=== PATIENT | male | born 1945 | race American Indian/Alaskan Native ===

== ENCOUNTER 2017-09-20 17:01 | Emergency (ER) | payer MEDICARE ==
[2017-09-20 17:31] VITALS: BP 125/68
--- NOTE | 2017-09-20 18:05 | Emergency Department Report ---
ED GI Bleed HPI - General Chief complaint: GI Bleed Stated complaint: BLOOD IN STOOL Time Seen by Provider: 09/20/17 17:55 Source: patient Mode of arrival: Ambulatory Limitations: No Limitations - History of Present Illness Initial comments: Patient is a 72-year-old -[place] male whose presenting with blood in his stool. Patient's states is was a bit looser today and he's noticed quite a bit of blood. Patient is black bright red blood is filled and to the toilet. Patient denies any abdominal pain at this time. The patient does have a history of hemorrhoids is not sure if the hemorrhoids or was bleeding or not. Patient denies any vomiting fevers chills abdominal pain at this time. - Related Data Home Medications Medication Instructions Recorded Confirmed Last Taken Clopidogrel [Plavix] 75 mg PO QDAY 03/22/13 08/25/15 08/24/15 Meloxicam 15 mg PO QDAY 03/22/13 08/31/15 08/30/15 22:00 Omeprazole [First-Omeprazole] 20 mg PO QDAY 03/22/13 08/31/15 08/30/15 09:00 Pravastatin [Pravachol] 40 mg PO QDAY 03/22/13 08/31/15 08/30/15 22:00 Tadalafil [Cialis] 20 mg PO Q3D 03/22/13 08/25/15 Unknown Tamsulosin [Flomax] 0.4 mg PO BID 03/22/13 08/31/15 08/30/15 09:00 Triamter/Hctz 75-50 mg (Nf) 1 tab PO QDAY 03/22/13 08/25/15 03/21/13 09:00 [Maxzide 75-50 mg] 1/2 traZODone [Desyrel] 50 mg PO QHS 03/22/13 08/31/15 03/21/13 22:00 25 Aspirin [Aspirin TAB] 325 mg PO QDAY 01/26/15 08/25/15 08/24/15 AtorvaSTATin [Lipitor] 40 mg PO DAILY 01/26/15 08/31/15 08/30/15 21:00 Flaxseed [Flaxseed Oil] 1,000 mg PO DAILY 01/26/15 08/25/15 Unknown Hydrochlorothiazide [Hctz] 12.5 mg PO DAILY 01/26/15 08/31/15 08/30/15 09:00 Meloxicam [Mobic] 15 mg PO DAILY 01/26/15 08/25/15 Unknown Mv-Min/Folic/Vit K/Lycop/Coq10 1 each PO DAILY 01/26/15 08/25/15 Unknown [Daily Multivitamin Capsule] Potassium Citrate [Urocit-K 15] 1 tab PO DAILY 01/26/15 08/31/15 08/30/15 09:00 Valsartan 80 mg PO DAILY 01/26/15 08/31/15 Unknown Previous Rx's Medication Instructions Recorded Last Taken Type Hydrocortisone [Anusol-Hc] 30 gm RC BID 5 Days cream..g. 09/20/17 Unknown Rx Allergies Allergy/AdvReac Type Severity Reaction Status Date / Time lisinopril AdvReac COUGHING Verified 08/25/15 14:39 ED Review of Systems ROS: Stated complaint: BLOOD IN STOOL Other details as noted in HPI Comment: All other systems reviewed and negative ED Past Medical Hx - Past Medical History Hx Hypertension: Yes Hx Heart Attack/AMI: Yes (02/2013) Hx Congestive Heart Failure: No Hx Diabetes: No Hx Renal Disease: No Hx Arthritis: Yes Hx Seizures: No Hx Asthma: No Hx COPD: No Hx HIV: No Additional medical history: hemorrhoids - Surgical History Hx Coronary Stent: Yes (STENTED X 2012) Hx Pacemaker: Yes (05/2017) - Social History Smoking Status: Former Smoker Substance Use Type: None - Medications Home Medications: Home Medications Medication Instructions Recorded Confirmed Last Taken Type Clopidogrel [Plavix] 75 mg PO QDAY 03/22/13 08/25/15 08/24/15 History Meloxicam 15 mg PO QDAY 03/22/13 08/31/15 08/30/15 22:00 History Omeprazole [First-Omeprazole] 20 mg PO QDAY 03/22/13 08/31/15 08/30/15 09:00 History Pravastatin [Pravachol] 40 mg PO QDAY 03/22/13 08/31/15 08/30/15 22:00 History Tadalafil [Cialis] 20 mg PO Q3D 03/22/13 08/25/15 Unknown History Tamsulosin [Flomax] 0.4 mg PO BID 03/22/13 08/31/1508/30/16 09:00 History Triamter/Hctz 75-50 mg (Nf) 1 tab PO QDAY 03/22/13 08/25/15 03/21/13 09:00 History [Maxzide 75-50 mg] 1/2 traZODone [Desyrel] 50 mg PO QHS 03/22/13 08/31/15 03/21/13 22:00 History 25 Aspirin [Aspirin TAB] 325 mg PO QDAY 01/26/15 08/25/15 08/24/15 History AtorvaSTATin [Lipitor] 40 mg PO DAILY 01/26/15 08/31/15 08/30/15 21:00 History Flaxseed [Flaxseed Oil] 1,000 mg PO DAILY 01/26/15 08/25/15 Unknown History Hydrochlorothiazide [Hctz] 12.5 mg PO DAILY 01/26/15 08/31/15 08/30/15 09:00 History Meloxicam [Mobic] 15 mg PO DAILY 01/26/15 08/25/15 Unknown History Mv-Min/Folic/Vit K/Lycop/Coq10 1 each PO DAILY 01/26/15 08/25/15 Unknown History [Daily Multivitamin Capsule] Potassium Citrate [Urocit-K 15] 1 tab PO DAILY 01/26/15 08/31/15 08/30/15 09:00 History Valsartan 80 mg PO DAILY 01/26/15 08/31/15 Unknown History Hydrocortisone [Anusol-Hc] 30 gm RC BID 5 Days cream..g. 09/20/17 Unknown Rx ED Physical Exam - General Limitations: No Limitations General appearance: alert, in no apparent distress - Head Head exam: Present: atraumatic, normocephalic - Eye Eye exam: Present: normal appearance - ENT ENT exam: Present: mucous membranes moist - Neck Neck exam: Present: normal inspection - Respiratory Respiratory exam: Present: normal lung sounds bilaterally. Absent: respiratory distress - Cardiovascular Cardiovascular Exam: Present: regular rate, normal rhythm. Absent: systolic murmur, diastolic murmur, rubs, gallop - GI/Abdominal GI/Abdominal exam: Present: soft, normal bowel sounds. Absent: distended, tenderness, guarding, rebound - Rectal Rectal exam: Absent: normal inspection (patient has a small decompressed hemorrhoid present at the anal opening) - Extremities Exam Extremities exam: Present: normal inspection - Back Exam Back exam: Present: normal inspection - Neurological Exam Neurological exam: Present: alert, oriented X3 - Psychiatric Psychiatric exam: Present: normal affect, normal mood - Skin Skin exam: Present: warm, dry, intact, normal color. Absent: rash ED Course Vital Signs 09/20/17 17:29 Temperature 97.8 F Pulse Rate 88 Respiratory 18 Rate Blood Pressure 125/68 O2 Sat by Pulse 98 Oximetry Critical care attestation.: If time is entered above; I have spent that time in minutes in the direct care of this critically ill patient, excluding procedure time. ED Disposition Clinical Impression: Hemorrhoid Qualifiers: Hemorrhoid type: unspecified Qualified Code(s): K64.9 - Unspecified hemorrhoids Disposition: - TO HOME OR SELFCARE Is pt being admited?: No Does the pt Need Aspirin: No Condition: Stable Instructions: Hemorrhoids (ED) Prescriptions: Hydrocortisone [Anusol-Hc] 30 gm RC BID 5 Days cream..g. Referrals: PRIMARY CARE, [Primary Care Provider] - 3-5 Days Forms: Accompanied Note
== END 2017-09-20 18:16 | disposition home or self-care (01) ==
LOC: ED 17:01
DX: K64.9 Unspecified hemorrhoids (principal); I10 Essential (primary) hypertension; Z87.891 Personal history of nicotine dependence; Z88.8 Allergy status to other drugs, medicaments and biological substances; M19.90 Unspecified osteoarthritis, unspecified site
CPT/HCPCS: 99282